=== PATIENT | female | born 1955 | race African-American/Black ===

== ENCOUNTER 2025-08-15 14:45 | Emergency (ER) | payer MEDICARE, OTHER ==
[~2025-08-15] VITALS: Ht 165.1 cm; Wt 68.9 kg
[2025-08-15 14:51] VITALS: TEMP 98.2
[2025-08-15 16:29] VITALS: BP 144/84; O2SAT 97
== END 2025-08-15 16:30 | disposition home or self-care (01) ==
LOC: ER 14:50
DX: S76.011A Strain of muscle, fascia and tendon of right hip, initial encounter (principal); S83.92XA Sprain of unspecified site of left knee, initial encounter; I48.91 Unspecified atrial fibrillation; I11.9 Hypertensive heart disease without heart failure; E11.9 Type 2 diabetes mellitus without complications; W01.0XXA Fall on same level from slipping, tripping and stumbling without subsequent striking against object, initial encounter; Y93.89 Activity, other specified; Y92.89 Other specified places as the place of occurrence of the external cause; Y99.9 Unspecified external cause status
CPT/HCPCS: 73564-TC